=== PATIENT | male | born 1995 | race Caucasian/White ===

== ENCOUNTER 2016-08-14 20:59 | Emergency (ER) | payer OTHER ==
[~2016-08-14] VITALS: Ht 165.1 cm; Wt 68.0 kg
--- NOTE | 2016-08-15 00:52 | ED GI/GU/ABDOMINAL COMPLAINT ---
History of Present Illness General Chief Complaint: Chest Pain Stated Complaint: MID STERNAL CHEST PAIN, ARMS TINGLING Source: patient, family, old records Exam Limitations: no limitations Vital Signs & Intake/Output Vital Signs & Intake/Output Vital Signs Date Time Temp Pulse Resp B/P B/P Pulse O2 O2 Flow FiO2 Mean Ox Delivery Rate 08/15 0135 98.7 56 16 129/65 98 Room Air 08/14 2124 98.5 58 16 130/68 98 Room Air ED Intake and Output 08/15 0000 08/14 1200 Intake Total Output Total Balance Patient 150 lb Weight Weight Estimated Measurement Method Allergies Coded Allergies: No Known Allergies (08/14/16) Triage Note: RECEIVED 21 YO MALE C/O MSCP AND SHORTNESS OF BREATH, STARTED IN THE CAR. PT HAS A HX OF ANXIETY. NO FAMILY HX OF CARDIAC ISSUES AT A YOUNG AGE. PT VERY ANXIOUS ABOUT HAVING A SUDDEN CARDIAC ARREST OR ELECTRICAL PROBLEM Triage Nurses Notes Reviewed? yes Onset: Afternoon Duration: hour(s):, constant Timing: recent history Quality/Severity: aching, mild Location: substernal Radiation: no radiation Activities at Onset: none Prior Abdominal Problems: none Past Sexual History: Unobtainable at this time No Modifying Factors: none Associated Symptoms: chest pain HPI: 5 days prior to admission he complains of left hand pain numbness that is now gone. 6 hours prior to admission patient complains of substernal chest pain nonradiating mild constant associated with anxiety. He is concerned he is having an acute cardiac event. His mom reports since leaving college for break his anxiety is increased. He denies fever chills nausea vomiting diarrhea shortness of breath headache dysuria rash bleeding. Past History Travel History Traveled to [place] past 21 day No Medical History Any Pertinent Medical History? see below for history Neurological: NONE EENT: NONE Cardiovascular: NONE Respiratory: NONE Gastrointestinal: NONE Hepatic: NONE Renal: NONE Musculoskeletal: NONE Psychiatric: anxiety Endocrine: NONE Blood Disorders: NONE Cancer(s): NONE Surgical History Surgical History: non-contributory Psychosocial History What is your primary language Swazi Tobacco Use: Never used Family History Hx Contributory? No Review of Systems Review of Systems Constitutional: Reports: no symptoms. EENTM: Reports: no symptoms. Respiratory: Reports: no symptoms. Cardiovascular: Reports: see HPI. GI: Reports: no symptoms. Genitourinary: Reports: no symptoms. Musculoskeletal: Reports: no symptoms. Skin: Reports: no symptoms. Neurological/Psychological: Reports: see HPI, anxiety, confusion. Hematologic/Endocrine: Reports: no symptoms. Immunologic/Allergic: Reports: no symptoms. All Other Systems: Reviewed and Negative Physical Exam Physical Exam General Appearance: well developed/nourished, alert, awake, anxious, moderate distress, thin Head: atraumatic, normal appearance Eyes: Bilateral: normal appearance, PERRL, EOMI, normal inspection. Ears, Nose, Throat, Mouth: hearing grossly normal, moist mucous membrane Neck: normal inspection, supple, full range of motion, normal alignment Respiratory: normal breath sounds, chest non-tender, no respiratory distress, quiet respiration, lungs clear Cardiovascular: regular rate/rhythm, normal peripheral pulses, norml femoral pulses equa Peripheral Pulses: 4+ carotid (R), 4+ carotid (L) Gastrointestinal: normal bowel sounds, soft, non-tender, no organomegaly Male Genitals: normal genitalia Back: normal inspection, normal range of motion Extremities: normal range of motion, no ligament instability Neurologic/Psych: no motor/sensory deficits, awake, alert, oriented x 3, normal gait, deliver driver II-XII nml as tested Skin: intact, normal color, warm/dry Core Measures ACS in differential dx? Yes ASA ordered for poss ACS? No-ACS ruled out Severe Sepsis Present: No Septic Shock Present: No Progress Differential Diagnosis: AMI, gastritis, Anxiety Plan of Care: Orders Procedure Date/time Status EKG 08/14 2101 Active Current Medications Sig/Narda Start time Last Medication Dose Stop Time Status Admin Lorazepam 1 MG ONE ONE 08/15 0115 CAN (Ativan) 08/15 0116 Laboratory Tests 08/15/16 0102: TSH &T3 &Free T4 Intrp Cancelled, CBC w Diff Cancelled, WBC Cancelled, RBC Cancelled, Hgb Cancelled, Hct Cancelled, MCV Cancelled, MCH Cancelled, RDW Cancelled, Plt Count Cancelled, MPV Cancelled, PUBS MCHC Cancelled Initial ED EKG: normal axis, normal intervals, normal p-waves, normal QRS complex, normal sinus rhythm, no ST T wave changes Comments: The patient and mother declined further diagnostic evaluation such as CXR and labs secondary to possible increase in anxiety and panic. Requests something to decrease his anxiety. Departure Departure Time of Disposition: 127 Disposition: HOME OR SELF CARE Condition: Stable Clinical Impression Primary Impression: Chest pain syndrome Secondary Impressions: Anxiety disorder Qualifiers: Anxiety disorder type: generalized anxiety disorder Qualified Code: F41.1 - Generalized anxiety disorder Referrals: STAR ANDRADE MD Call for cardiology follow up Departure Forms: [employer] Customer Survey General Discharge Information
[2016-08-15 01:35] VITALS: BP 129/65
== END 2016-08-15 01:36 ==
LOC: ERH 20:59
DX: R07.1 Chest pain on breathing (principal); F41.9 Anxiety disorder, unspecified
CPT/HCPCS: 93005; 93010